=== PATIENT | female | born 1975 | race Caucasian/White ===

== ENCOUNTER 2022-07-09 23:17 | Emergency (ER) | payer MEDICAID ==
[~2022-07-09] VITALS: Ht 142.2 cm; Wt 90.0 kg
[~2022-07-09 23:17] MED LIST: EFFEXOR; SYNTHROID
[2022-07-09 23:23] VITALS: BP 124/74
== END 2022-07-10 05:25 | disposition left against medical advice (07) ==
LOC: ER 23:17
DX: Z53.21 Procedure and treatment not carried out due to patient leaving prior to being seen by health care provider (principal)

== ENCOUNTER 2022-07-12 17:16 | Emergency (ER) | payer MEDICAID ==
[~2022-07-12] VITALS: Ht 142.2 cm; Wt 82.0 kg
[2022-07-12] MEDS ORDERED: ASPIRIN 81MG TABLET PO ONE (23:45)
[2022-07-12] MEDS ORDERED: NITROGLYCERIN 0.4MG TABLET SL SL PRN (23:45)
[2022-07-13 00:04] LABS: BASOPHILS % 0.2 % (0.0-2.0); HEMOGLOBIN. 11.1 g/dL (12.0-16.0); LYMPHOCYTES % 43.2 % (20.0-50.0); MEAN CORPUSCULAR HEMOGLOBIN 28.3 pg (28.0-32.0); MEAN CORPUSCULAR VOLUME 86.5 fL (81.0-99.0); MEAN PLATELET VOLUME 8.4 fl (7.4-10.4); MONOCYTES % 8.3 % (2.0-8.0); NEUTROPHILS % 47.3 % (40.0-76.0); PLATELET 285 x1000/uL (130-400); RED BLOOD CELL COUNT 3.93 mill/uL (4.2-5.4); RED CELL DISTRIBUTION WIDTH 14.9 % (11.6-14.6)
[2022-07-13 00:12] LABS: CHLORIDE 107 mEq/L (98-107)
[2022-07-13 05:47] VITALS: BP 117/73
== END 2022-07-13 06:39 | disposition home or self-care (01) ==
LOC: ER 17:25
DX: G43.909 Migraine, unspecified, not intractable, without status migrainosus (principal); R07.89 Other chest pain; E78.00 Pure hypercholesterolemia, unspecified; Z98.890 Other specified postprocedural states; I95.9 Hypotension, unspecified; E03.9 Hypothyroidism, unspecified
CPT/HCPCS: 36415; 71045; 80053; 82962; 83880; 84484; 85025; 93005; 99285